=== PATIENT | male | born 1945 | race Caucasian/White ===

== ENCOUNTER → 2020-01-24 11:05 | Outpatient (BNVA) | payer MEDICARE, OTHER, SELFPAY | PROVIDERS: Visit Provider Urology | DX: Z76.89 Persons encountering health services in other specified circumstances (principal) | CPT/HCPCS: 99202 ==

== ENCOUNTER 2020-12-06 10:26 | Emergency (ER) | payer MEDICARE, OTHER, SELFPAY ==
--- NOTE | ~2020-12-06 | CT_ITS ---
EXAMINATION: CT CERVICAL SPINE WITHOUT CONTRAST CLINICAL INFORMATION: Left-sided neck pain COMPARISON: None TECHNIQUE: Axial images through the cervical spine without contrast. Sagittal and coronal reconstructions on the technologist workstation were performed. This CT examination was performed using dose optimization techniques as appropriate, variously including the following: *Automated exposure control *Adjustment of mA and/or kV according to patient size (this includes techniques or standardized protocols for targeted exams where dose is matched to indication/reason for exam; i.e. extremities or head) *Use of iterative reconstruction technique DLP: 513 mGy-cm FINDINGS: [employer] In[employer] film indicates increased lung markings in the right mid and lower lung. There may be a postsurgical changes to the right shoulder. Bone alignment is normal. No fracture or dislocation is seen. There is degenerative spondylosis and disc space narrowing at C5-C6. There is disc osteophyte complex at C5-C6. There are degenerative changes at the C1 dens articulation. No definite disc herniation is seen. No significant spinal stenosis is seen. There is mild left-sided neuroforaminal narrowing from bony osteophyte. There is mild disc osteophyte complex at C6-C7. No disc herniation or spinal stenosis or neural foraminal narrowing seen. Visualized intracranial structures are normal. Prevertebral soft tissues are normal. There is mild bilateral carotid calcification. There are increased markings seen at the right lung apex. The left lung apex is clear. CT/CT cervical spine wo con IMPRESSION: Degenerative spondylosis and degenerative disc disease at C5-C6 with mild left-sided neuroforaminal narrowing from bony osteophyte. Small disc osteophyte complex at C6-C7. No fracture or dislocation seen. Increased lung markings at the right lung apex.
[2020-12-06 10:41] VITALS: BP 155/67; PULSE 67; RESP 18; TEMP 36.1; O2SAT 94; BMI 29.7
[2020-12-06] MEDS: Lidocaine 4 % Patch ADH..PATCH 1 PATCH TRANSDERMA (11:29)
[2020-12-06] MEDS: diazePAM 5 MG TABLET PO (11:29)
[2020-12-06] MEDS: Acetaminophen 325 MG TABLET 650 MG PO (11:29)
--- NOTE | 2020-12-06 12:23 | ED.NECK ---
HPI - Neck Pain/Injury General Chief Complaint: Neck Pain/Injury Stated Complaint: NECK PAIN Time Seen by Provider: 12/06/20 11:08 Source: patient Mode of arrival: ambulatory History of Present Illness HPI Narrative: 75-year-old male with a past medical history of gout, heart attack, HTN, presenting to the ED complaining of left-sided neck pain radiating to head x1 week. Admits pain began after lifting heavy boxes. For pain worse with head/neck movement and arm movement. Denies radiation of pain down arm, numbness, tingling, weakness, visual changes, CP/SOB. Patient takes baby ASA daily. Denies direct injury/fall or trauma MD complaint: neck pain Related Data Home Medications Medication Instructions Recorded Confirmed aspirin 81 mg tablet,delayed 81 mg PO DAILY 01/24/20 release atorvastatin 80 mg tablet 80 mg PO DAILY 01/24/20 ezetimibe 10 mg tablet 10 mg PO DAILY 01/24/20 flu vacc (65yr ml IM 01/24/20 up)-MF59C(PF) 60 mcg(15 mcgx4)/0.5 mL IM syringe hydrocortisone 2.5 % topical cream applic TOPICAL 01/24/20 lisinopril 5 mg tablet 5 mg PO DAILY 01/24/20 metoprolol succinate 100 mg 100 mg PO DAILY 01/24/20 tablet,extended release 24 hr nitroglycerin 0.4 mg sublingual 0.4 mg SUBLINGUAL Q5M PRN 01/24/20 tablet (Nitrostat) Previous Rx's Medication Instructions Recorded acetaminophen 500 mg tablet 500 mg PO Q6H PRN #20 tab 12/06/20 (Tylenol Extra Strength) cyclobenzaprine 5 mg tablet 5 mg PO Q8H PRN 5 Days #14 tab 12/06/20 lidocaine 5 % topical patch 1 patch TOPICAL DAILY PRN #30 ea 12/06/20 (Lidoderm) MDD remove after 12 hours Allergies Allergy/AdvReac Type Severity Reaction Status Date / Time No Known Allergies Allergy Verified 12/06/20 10:43 Review of Systems Review of Systems: Constitutional: No Fever, No Night Sweats, No Fatigue, No Malaise ENT/Mouth: No Ear Pain, No Nasal Congestion, No sore throat, No Swallowing Difficulty Eyes: No Eye Pain, No Redness, No Vision Changes Cardiovascular: No Chest Pain, No SOB, No Edema, No Palpitations Respiratory: No Cough, No Dyspnea Gastrointestinal: No Nausea, No Vomiting, No Diarrhea, No Constipation, No Abdominal pain Genitourinary: No Dysuria, No Urinary Frequency, No Urinary Incontinence, No Flank Pain Musculoskeletal: + joint pain, No Myalgias, No Joint Swelling Skin: No Skin Lesions, No rash Neuro: No Weakness, No Numbness, No Paresthesias, + Headache Yes all other systems are reviewed and are negative Neurologic: Denies Abnormal speech present [facility] Past Medical History Attestation statement: The following information was validated with the patient. Medical History (Updated 12/06/20 @ 12:35 by ANA Gould) Gout Heart attack High blood pressure Social History Social History Advance Directives: No Physical Exam Vital Signs: Vital Signs: Last Vital Signs Temp 97.0 F 12/06/20 10:41 Pulse 67 12/06/20 10:41 Resp 18 12/06/20 10:41 BP 155/67 H 12/06/20 10:41 Pulse Ox 94 12/06/20 10:41 Body Mass Index 29.7 Const: General: cooperative, healthy appearing, no acute distress, well developed, alert and awake Orientation/consciousness: patient oriented x3 Limitations: no limitations HENMT: Head: Yes normal to inspection, Yes normocephalic, Yes atraumatic, No Ward's sign and No raccoon eyes Ears: hearing grossly normal bilaterally, external ears normal and TM's normal bilaterally General nose exam: Normal external nose present Face and sinus: Yes normal facial exam Mouth: Normal oral and palatal mucosa present Throat: Yes posterior oropharynx normal, Yes tonsils normal, Yes uvula midline, No peritonsillar mass and No uvula laterally displaced Eyes: General: appearance normal, both eyes and all related structures EOM: EOMs intact bilaterally Neck: Other: no midline cervical spinous tenderness/step-off. + left-sided paraspinal/MSK tenderness to palpation. + pain elicited on ROM of neck > rightward movement of neck Neck: Yes normal visual inspection, Yes no meningeal signs, Yes trachea midline, Yes supple and No anterior neck swelling Resp: Effort & Inspection: normal respiratory effort and no respiratory distress Cardio: Rate: regular rate GI: Inspection: Yes normal to inspection Palpation (GI): Soft to palpation, nontender, no guarding and not rigid Skin: Rashes: no rashes Wounds: no wounds Neuro: Other: No saddle anesthesia General: patient oriented x3, gait normal, tone normal, moves all extremities, no meningeal signs and no focal motor deficits Cognition (Neuro): normal cognition Speech: No Abnormal speech present Gait exam (Neuro): Normal gait present Motor exam (neuro): 5/5 motor strength present throughout Extrem: General: Yes normal to inspection Course Course Course Narrative: -patient reports symptomatic improvement in the ED after p.o. Valium, Tylenol, and Lidoderm patch CT cervical spine wo con IMPRESSION: Degenerative spondylosis and degenerative disc disease at C5-C6 with mild left-sided neuroforaminal narrowing from bony osteophyte. Small disc osteophyte complex at C6-C7. No fracture or dislocation seen. Increased lung markings at the right lung apex. >> results discussed with patient and at bedside. Recommended follow-up with PCP. Worrisome signs and symptoms and strict return precautions discussed, they verbalized understanding and feel safe for discharge home MDM - Neck Pain/Injury MDM Narrative Medical decision making narrative: 75-year-old male with a past medical history of gout, heart attack, HTN, presenting to the ED complaining of left-sided neck pain radiating to head x1 week. On exam VSS, NAD, physical exam as above. No midline spinous tenderness throughout, strength intact throughout. Likely MSK pain. Lower concern for cord compression, or cervical dissection. Plan: P.o. Valium, cervical spine CT Medical Records Attestation: I reviewed the patient's medical records. Lab Data Attestation: I reviewed the patient's lab results. Discharge Plan Discharge Clinical Impression: Degenerative disc disease Qualifiers: Spinal region: mid-cervical Mid-cervical spinal level: unspecified Qualified Code(s): M50.320 - Other cervical disc degeneration, mid-cervical region, unspecified level Patient Disposition: Home, Self-Care Instructions: Acute Neck Pain (ED) Additional Instructions: Your CAT scan shows degenerative disc disease at C5-C6 and some bony osteophytes/bony protrusions. No fracture or dislocation. Is important for you to follow-up with your primary care doctor. Your pain is likely musculoskeletal Flexeril is a muscle relaxer, take at night as it makes you drowsy, do not drive, drink alcohol, or operate machinery while taking it Lidoderm patches are numbing patches, apply to painful area In addition take Tylenol at home If symptoms persist or worsen, pain becomes unbearable, you developed urinary retention or incontinence, or weakness return to the ED Prescriptions: New acetaminophen [Tylenol Extra Strength] 500 mg tablet 500 mg PO Q6H PRN (Reason: pain or fever) Qty: 20 RF: 0 lidocaine [Lidoderm] 5 % adhesive patch,medicated 1 patch topical DAILY MDD remove after 12 hours PRN (Reason: pain) Qty: 30 RF: 0 cyclobenzaprine 5 mg tablet 5 mg PO Q8H PRN (Reason: pain (scale score 7-10)) 5 Days Qty: 14 RF: 0 No Action metoprolol succinate 100 mg tablet extended release 24 hr 100 mg PO DAILY RF: 0 aspirin 81 mg tablet,delayed release (DR/EC) 81 mg PO DAILY RF: 0 Fluad Quad 2020-21(65y up)(PF) 60 mcg (15 mcg x 4)/0.5 mL syringe IM RF: 0 atorvastatin 80 mg tablet 80 mg PO DAILY RF: 0 lisinopril 5 mg tablet 5 mg PO DAILY RF: 0 ezetimibe 10 mg tablet 10 mg PO DAILY RF: 0 hydrocortisone 2.5 % cream topical RF: 0 nitroglycerin [Nitrostat] 0.4 mg tablet, sublingual 0.4 mg sublingual Q5M PRNRF: 0 Referrals: Cleveland Palm MD [Primary Care Provider] - 2 days
[2020-12-06 12:47] VITALS: BP 115/80; PULSE 60; RESP 19; O2SAT 97
== END 2020-12-06 12:48 | disposition home or self-care (01) ==
PROVIDERS: Emergency Provider Emergency Medicine; PCP Internal Medicine
DX: M50.320 Other cervical disc degeneration, mid-cervical region, unspecified level (principal); Z79.899 Other long term (current) drug therapy
CPT/HCPCS: 72125; 99284

== ENCOUNTER 2021-09-13 20:41 | Emergency (ER) | payer MEDICARE, OTHER, SELFPAY ==
--- NOTE | 2021-09-13 | ECG_ITS ---
Test Reason : STROKE Blood Pressure : / mmHG Vent. Rate : 067 BPM Atrial Rate : 067 BPM P-R Int : 146 ms QRS Dur : 076 ms QT Int : 402 ms P-R-T Axes : 043 012 036 degrees QTc Int : 424 ms Normal sinus rhythm Normal ECG No previous ECGs available Referred By: Andie Alas Electronically Signed By:Pee Kulkarni
--- NOTE | ~2021-09-13 | CT_ITS ---
EXAMINATION: CT HEAD WITHOUT CONTRAST CLINICAL INFORMATION: Unable to move right arm COMPARISON: None TECHNIQUE: Imaging was performed from the skull base to vertex without intravenous administration of contrast. This CT examination was performed using dose optimization techniques as appropriate, variously including the following: *Automated exposure control *Adjustment of mA and/or kV according to patient size (this includes techniques or standardized protocols for targeted exams where dose is matched to indication/reason for exam; i.e. extremities or head) *Use of iterative reconstruction technique Total exam dose length product: 856 mGy-cm FINDINGS: Approximately 4.4 x 2.9 x 4.2 cm high density intraparenchymal hematoma centered in the posterior high left frontal and adjacent parietal lobe with surrounding vasogenic edema and local mass effect/sulcal effacement and slight mass effect on the underlying posterior left lateral ventricle. No midline shift or herniation. Suggestion of a small amount of contralateral right posterior parafalcine subarachnoid hemorrhage on series 5 image 22. No other intracranial hemorrhage or mass. No midline shift or herniation. Basal cisterns are patent. Rios-white matter differentiation is maintained. 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 Proportional prominence of the ventricles and sulcal spaces is consistent with mild volume loss. Patchy periventricular and deep white matter hypoattenuation is consistent with moderate small vessel ischemic changes. No calvarial fracture or soft tissue abnormality. Opacification of the left frontal sinus. Mastoid air cells and visualized paranasal sinuses otherwise normally aerated. CT/CT head for stroke IMPRESSION: 1. Approximately 4.4 x 2.9 x 4.2 cm intraparenchymal hemorrhage/hematoma in the high left posterior frontal and adjacent parietal lobes with surrounding vasogenic edema and local mass effect. No midline shift or herniation. 2. Suspected small amount of right posterior parafalcine/parietal subarachnoid hemorrhage. This critical result was discussed with Andie Alas at 8:59 PM on 09/13/2021 and it was ascertained that the content and urgency of the report was understood at the time of direct communication.
[2021-09-13 20:50] LABS: Prothrombin Time Whole Bld POC 12.6 sec (11.1-13.5); ~PT, ~INR - Anti Coag Clinic 1.1 (0.9-1.1)
--- NOTE | 2021-09-13 20:50 | ED.NEUROSD ---
HPI - Neuro Symptoms/Deficit General Chief Complaint: Stroke Stated Complaint: stroke alert Time Seen by Provider: 09/13/21 20:46 Source: patient and EMS Mode of arrival: EMS Limitations: no limitations History of Present Illness HPI Narrative: Patient comes to the emergency room via EMS. Approximately at 20:50, patient try getting out of his couch at home, patient noticed that he could not move his right arm or his right leg. His noted that he had slurred speech. By the time that the patient arrived to the emergency room, patient was able to move a bit more his right arm and right leg, still having significant trouble moving upper and lower extremity on the right side, the speech is close to normal. Patient denies headache. Initial blood pressure 180/84 per EMS, in the emergency room 205/89 Related Data Home Medications Medication Instructions Recorded Confirmed aspirin 81 mg tablet,delayed 81 mg PO DAILY 01/24/20 release atorvastatin 80 mg tablet 80 mg PO DAILY 01/24/20 ezetimibe 10 mg tablet 10 mg PO DAILY 01/24/20 flu vacc 2019-21(65yr ml IM 01/24/20 up)-MF59C(PF) 60 mcg(15 mcgx4)/0.5 mL IM syringe hydrocortisone 2.5 % topical cream applic topical 01/24/20 lisinopril 5 mg tablet 5 mg PO DAILY 01/24/20 metoprolol succinate 100 mg 100 mg PO DAILY 01/24/20 tablet,extended release 24 hr nitroglycerin 0.4 mg sublingual 0.4 mg sublingual Q5M PRN 01/24/20 tablet (Nitrostat) Previous Rx's Medication Instructions Recorded acetaminophen 500 mg tablet 500 mg PO Q6H PRN pain or fever 12/06/20 (Tylenol Extra Strength) #20 tabs cyclobenzaprine 5 mg tablet 5 mg PO Q8H PRN pain (scale score 12/06/20 7-10) 5 days #14 tabs diazepam 5 mg tablet (Valium) 5 mg PO BEDTIME PRN muscle spasm 12/06/20 #5 tabs lidocaine 5 % topical patch 1 patch topical DAILY PRN pain #30 12/06/20 (Lidoderm) ea Allergies Allergy/AdvReac Type Severity Reaction Status Date / Time No Known Allergies Allergy Verified 12/06/20 10:43 Review of Systems Review of Systems: Constitutional : No Weight loss, No Fever, No Chills, No Night Sweats, No Fatigue, No Malaise ENT/Mouth : No Hearing loss, No Ear Pain, No Nasal Congestion, No Sinus Pain, No Hoarseness, No sore throat, No Rhinorrhea, No Swallowing Difficulty Eyes: No Eye Pain, No Swelling, No Redness, No Foreign Body, No Discharge, No Vision Changes Cardiovascular : No Chest Pain, No SOB, No Dyspnea on Exertion, No Orthopnea, No Edema, No Palpitations Respiratory : No Cough, No Sputum, No Wheezing, No Smoke Exposure, No Dyspnea Gastrointestinal : No Nausea, No Vomiting, No Diarrhea, No Constipation, No abdominal Pain, No Hematochezia, No Melena Genitourinary : no irregular bleeding, No Dysuria, No Urinary Frequency, No Hematuria, No Urinary Incontinence, No Urgency, No Flank Pain, No Urinary Flow Changes, No Hesitancy Musculoskeletal : No joint pain, No Myalgias, No Joint Swelling Skin : No Skin Lesions, No rash Neuro : Complaining of weakness in right upper and lower extremity, intermittent slurred speech, decreased sensation in the right arm, No Numbness, No Paresthesias, No Loss of Consciousness, No Dizziness, No Headache Psych : No Anxiety/Panic, No Depression, No SI/HI/AH/VH, No Social Issues, Heme/Lymph: No Bruising, No Bleeding,No Lymphadenopathy Endocrine : No Polyuria, No Polydipsia, No Temperature Intolerance [facility] Past Medical History Medical History Gout Heart attack High blood pressure Social History Social History Advance Directives: No Advance Directives Information Provided: No Physical Exam Vital Signs: Vital Signs: Last Vital Signs Temp 98.2 F 09/13/21 22:05 Pulse 53 09/13/21 22:05 Resp 20 09/13/21 22:05 BP 166/70 H 09/13/21 22:05 Pulse Ox 96 09/13/21 22:05 O2 Del Method 09/13/21 22:05 BMI result Body Mass Index 30.2 Const: Other: Appearance: Alert. Oriented X3. No acute distress. Eyes: Pupils equal, round and reactive to light. ENT: Pharynx normal. Neck: Normal inspection. Neck supple. No lymph nodes noted. No crepitus CVS: Normal heart rate and rhythm. Pulses normal. Normal S1 and S2 Respiratory: No respiratory distress. Breath sounds normal. No Wheezing. No rales Abdomen: Soft and nontender. No rigidity. No distention. Skin: Skin warm and dry. Normal skin color. Normal skin turgor. Extremities: Patient has significant drift in right leg and right arm, decreased sensation in right arm Neuro: Oriented X 3. No motor deficit. No sensory deficit. Moving all extremities. No slurred speech. CN 2 through 12 grossly intact Psych: calm, cooperative, normal affect Course Course Course Narrative: Dry CT scan shows a 4.4 cm intraparenchymal hemorrhage. Patient is not on blood thinners, patient denies any trauma. Patient is not sure if he has been diagnosed with hypertension in the past. However, per patient's past medical history he has the diagnosis of hypertension, UT and gout 21:09. We called [facility], call Back pending. Patient is getting nicardipine at this time. Patient states that he feels well. No headache. Patient remains awake, alert and oriented x3, denies headache. 21:45, I discussed the patient with Dr. Griffin from [facility] neurology, the full radiology report is not available yet. Patient's blood pressure in the 160 systolic. Goal will be less than 140. Recommendations: Patient will be admitted at [facility] by medicine. Call Back pending. Patient has not had his home medications yet, patient will be given metoprolol 100 mg and lisinopril 5 mg 22:20, I discussed the patient with Dr. Dennis, patient being admitted to [facility] the inpatient floor MDM - Neuro Symptoms/Deficit Lab Data Result diagrams: 09/13/21 20:58 09/13/21 20:58 Labs: Lab Results 09/13/21 09/13/21 09/13/21 Range/Units 20:46 20:47 20:58 WBC 6.5 (4.8-10.8) X10*3/uL RBC 4.55 L (4.60-5.80) X10*6/uL Hgb 13.8 L (14.0-18.0) g/dl Hct 41.3 L (42.0-52.0) % MCV 90.8 (80.0-98.0) fL MCH 30.3 (27.0-33.0) pg MCHC 33.4 (31.0-36.0) g/dl RDW 13.1 (11.0-16.0) % Plt Count 236 (160-400) X10*3/uL MPV 8.7 L (9.4-12.4) fL Immature Gran % (Auto) 0.3 (0.0-0.4) % Neut % (Auto) 42.3 L (45-73) % Lymph % (Auto) 36.9 (20-40) % Stewart % (Auto) 14.0 H (2-11) % Eos % (Auto) 5.7 H (0-4) % Baso % (Auto) 0.8 (0-2) % Lymph # (Auto) 2.4 (1.2-4.9) X10*3/uL Stewart # (Auto) 0.9 (0.1-1.2) X10*3/uL Eos # (Auto) 0.4 (0.0-0.4) X10*3/uL Baso # (Auto) 0.1 (0.0-0.2) X10*3/uL Abs Immat Gran (auto) 0.02 (0.00-0.03) X10*3/uL Absolute Neuts (auto) 2.7 (2.0-8.3) x10*3/uL Absolute Nucleated RBC 0.000 (0.0-0.012) X10*3/uL Nucleated RBC % (auto) 0.0 (0.0-0.2) /100WBC PT (9.9-13.0) SEC Whole Blood PT 12.6 (11.1-13.5) sec INR (0.9-1.1) Whole Blood INR 1.1 (0.9-1.1) Sodium (135-145) mmol/L Potassium (3.3-5.1) mmol/L Chloride (96-108) mmol/L Carbon Dioxide (22-29) mmol/L Anion Gap (12-20) BUN (9-16) mg/dL Creatinine (0.5-1.4) mg/dL Estim Creat Clear Calc Estimated GFR POC Glucose 123 H (60-115) mg/dL Random Glucose (60-115) mg/dL Calcium (8.4-10.2) mg/dL Total Bilirubin (0.0-1.0) mg/dL AST (5-37) U/L ALT (0-40) U/L Alkaline Phosphatase (39-117) U/L Troponin I High Sens (<3.5-35.0) ng/L Total Protein (6.5-8.0) g/dL Albumin (3.5-5.0) g/dL COVID-19 (DINESH) (Negative) COVID-19 Clin Com 09/13/21 09/13/21 09/13/21 Range/Units 20:58 20:58 20:58 WBC (4.8-10.8) X10*3/uL RBC (4.60-5.80) X10*6/uL Hgb (14.0-18.0) g/dl Hct (42.0-52.0) % MCV (80.0-98.0) fL MCH (27.0-33.0) pg MCHC (31.0-36.0) g/dl RDW (11.0-16.0) % Plt Count (160-400) X10*3/uL MPV (9.4-12.4) fL Immature Gran % (Auto) (0.0-0.4) % Neut % (Auto) (45-73) % Lymph % (Auto) (20-40) % Stewart % (Auto) (2-11) % Eos % (Auto) (0-4) % Baso % (Auto) (0-2) % Lymph # (Auto) (1.2-4.9) X10*3/uL Stewart # (Auto) (0.1-1.2) X10*3/uL Eos # (Auto) (0.0-0.4) X10*3/uL Baso # (Auto) (0.0-0.2) X10*3/uL Abs Immat Gran (auto) (0.00-0.03) X10*3/uL Absolute Neuts (auto) (2.0-8.3) x10*3/uL Absolute Nucleated RBC (0.0-0.012) X10*3/uL Nucleated RBC % (auto) (0.0-0.2) /100WBC PT 11.1 (9.9-13.0) SEC Whole Blood PT (11.1-13.5) sec INR 1.0 (0.9-1.1) Whole Blood INR (0.9-1.1) Sodium 135 (135-145) mmol/L Potassium 4.1 (3.3-5.1) mmol/L Chloride 105 (96-108) mmol/L Carbon Dioxide 21 L (22-29) mmol/L Anion Gap 13 (12-20) BUN 12 (9-16) mg/dL Creatinine 1.03 (0.5-1.4) mg/dL Estim Creat Clear Calc TNP Estimated GFR > 60 POC Glucose (60-115) mg/dL Random Glucose 135 H (60-115) mg/dL Calcium 8.7 (8.4-10.2) mg/dL Total Bilirubin 0.5 (0.0-1.0) mg/dL AST 27 (5-37) U/L ALT 19 (0-40) U/L Alkaline Phosphatase 97 (39-117) U/L Troponin I High Sens 11.0 (<3.5-35.0) ng/L Total Protein 7.6 (6.5-8.0) g/dL Albumin 3.8 (3.5-5.0) g/dL COVID-19 (DINESH) (Negative) COVID-19 Clin Com 09/13/21 Range/Units 21:17 WBC (4.8-10.8) X10*3/uL RBC (4.60-5.80) X10*6/uL Hgb (14.0-18.0) g/dl Hct (42.0-52.0) % MCV (80.0-98.0) fL MCH (27.0-33.0) pg MCHC (31.0-36.0) g/dl RDW (11.0-16.0) % Plt Count (160-400) X10*3/uL MPV (9.4-12.4) fL Immature Gran % (Auto) (0.0-0.4) % Neut % (Auto) (45-73) % Lymph % (Auto) (20-40) % Stewart % (Auto) (2-11) % Eos % (Auto) (0-4) % Baso % (Auto) (0-2) % Lymph # (Auto) (1.2-4.9) X10*3/uL Stewart # (Auto) (0.1-1.2) X10*3/uL Eos # (Auto) (0.0-0.4) X10*3/uL Baso # (Auto) (0.0-0.2) X10*3/uL Abs Immat Gran (auto) (0.00-0.03) X10*3/uL Absolute Neuts (auto) (2.0-8.3) x10*3/uL Absolute Nucleated RBC (0.0-0.012) X10*3/uL Nucleated RBC % (auto) (0.0-0.2) /100WBC PT (9.9-13.0) SEC Whole Blood PT (11.1-13.5) sec INR (0.9-1.1) Whole Blood INR (0.9-1.1) Sodium (135-145) mmol/L Potassium (3.3-5.1) mmol/L Chloride (96-108) mmol/L Carbon Dioxide (22-29) mmol/L Anion Gap (12-20) BUN (9-16) mg/dL Creatinine (0.5-1.4) mg/dL Estim Creat Clear Calc Estimated GFR POC Glucose (60-115) mg/dL Random Glucose (60-115) mg/dL Calcium (8.4-10.2) mg/dL Total Bilirubin (0.0-1.0) mg/dL AST (5-37) U/L ALT (0-40) U/L Alkaline Phosphatase (39-117) U/L Troponin I High Sens (<3.5-35.0) ng/L Total Protein (6.5-8.0) g/dL Albumin (3.5-5.0) g/dL COVID-19 (DINESH) Negative (Negative) COVID-19 Clin Com See Note Imaging Data CT scan - head: Radiologist's impression: Approximately 4.4 x 2.9 x 4.2 cm high density intraparenchymal hematoma centered in the posterior high left frontal and adjacent parietal lobe with surrounding vasogenic edema and local mass effect/sulcal effacement and slight mass effect on the underlying posterior left lateral ventricle. No midline shift or herniation. Suggestion of a small amount of contralateral right posterior parafalcine subarachnoid hemorrhage on series 5 image 22. No other intracranial hemorrhage or mass. No midline shift or herniation. Basal cisterns are patent. Rios-white matter differentiation is maintained. 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 Proportional prominence of the ventricles and sulcal spaces is consistent with mild volume loss. Patchy periventricular and deep white matter hypoattenuation is consistent with moderate small vessel ischemic changes. No calvarial fracture or soft tissue abnormality.? Opacification of the left frontal sinus. Mastoid air cells and visualized paranasal sinuses otherwise normally aerated. CT/CT head for stroke IMPRESSION: 1.? Approximately 4.4 x 2.9 x 4.2 cm intraparenchymal hemorrhage/hematoma in the high left posterior frontal and adjacent parietal lobes with surrounding vasogenic edema and local mass effect. No midline shift or herniation. 2.? Suspected small amount of right posterior parafalcine/parietal subarachnoid hemorrhage. NIH Stroke Scale Level of Consciousness: Alert Level of Consciousness Questions: Answers both questions correctly Level of Consciousness Commands: Performs both tasks correctly Best Gaze: Normal Visual: No visual loss Facial Palsy: Normal Motor Arm (Right): Drift Motor Arm (Left): No drift Motor Leg (Right): Drift Motor Leg (Left): No drift Limb Ataxia: Absent Sensory: Normal Best Language: No aphasia Dysarthia: Mild to moderate dysarthria Extinction and Inattention: No abnormality Score: 3 Critical Care Time Critical Care Time Critical Care Time: Yes Total Critical Care Time: 60 Attestation: I have personally provided critical care time. Time includes review of lab data, radiology results, discussion with consultants, and monitoring for potential decompensation. Intervention performed as documented. Discharge Plan Discharge Clinical Impression: Intraparenchymal hemorrhage of brain Patient Disposition: er Acute Care Hospital Transfer Details: [facility] Prescriptions: No Action acetaminophen [Tylenol Extra Strength] 500 mg tablet 500 mg PO Q6H PRN (Reason: pain or fever) Qty: 20 0RF lidocaine [Lidoderm] 5 % adhesive patch,medicated 1 patch topical DAILY MDD remove after 12 hours PRN (Reason: pain) Qty: 30 0RF Rx Instructions: leave on most painful area for up to 12 hrs cyclobenzaprine 5 mg tablet 5 mg PO Q8H PRN (Reason: pain (scale score 7-10)) 5 Days Qty: 14 0RF diazepam [Valium] 5 mg tablet 5 mg PO BEDTIME PRN (Reason: muscle spasm) Qty: 5 0RF metoprolol succinate 100 mg tablet extended release 24 hr 100 mg PO DAILY aspirin 81 mg tablet,delayed release (DR/EC) 81 mg PO DAILY Fluad Quad (65y up)(PF) 60 mcg (15 mcg x 4)/0.5 mL syringe IM atorvastatin 80 mg tablet 80 mg PO DAILY lisinopril 5 mg tablet 5 mg PO DAILY ezetimibe 10 mg tablet 10 mg PO DAILY hydrocortisone 2.5 % cream topical nitroglycerin [Nitrostat] 0.4 mg tablet, sublingual 0.4 mg sublingual Q5M PRN Rx Instructions: do not exceed 3 doses per episode
--- NOTE | 2021-09-13 21:13 | PC.NURSE ---
call out to [facility] transfer line @[phone]
[2021-09-13 21:14] LABS: MANUAL DIFF FLAG NO
[2021-09-13 21:16] LABS: Basophils Absolute Auto 0.1 X10*3/uL (0.0-0.2); Basophils Percent Auto 0.8 % (0-2); Eosinophils Absolute Auto 0.4 X10*3/uL (0.0-0.4); Eosinophils Percent Auto 5.7 % (0-4); Hematocrit 41.3 % (42.0-52.0); Hemoglobin 13.8 g/dl (14.0-18.0); Imm Gran Abs Auto 0.02 X10*3/uL (0.00-0.03); Imm Gran Pct Auto 0.3 % (0.0-0.4); Lymphocytes Absolute Auto 2.4 X10*3/uL (1.2-4.9); Lymphocytes Percent Auto 36.9 % (20-40); Mean Corpuscular HGB Conc 33.4 g/dl (31.0-36.0); Mean Corpuscular Hemoglobin 30.3 pg (27.0-33.0); Mean Corpuscular Volume 90.8 fL (80.0-98.0); Mean Platelet Volume 8.7 fL (9.4-12.4); Monocytes Absolute Auto 0.9 X10*3/uL (0.1-1.2); Neutrophils Absolute Auto 2.7 x10*3/uL (2.0-8.3); Neutrophils Percent Auto 42.3 % (45-73); Platelet Count 236 X10*3/uL (160-400); Red Blood Count 4.55 X10*6/uL (4.60-5.80); Red Cell Distribution Width 13.1 % (11.0-16.0); White Blood Count 6.5 X10*3/uL (4.8-10.8)
[2021-09-13 21:18] VITALS: BP 164/68; BP 180/84; PULSE 61; RESP 16; TEMP 36.6; O2SAT 96; BMI 30.2
[2021-09-13 21:20] LABS: Glucose, Whole Blood 123 mg/dL (60-115)
[2021-09-13 21:21] LABS: Prothrombin Time 11.1 SEC (9.9-13.0)
[2021-09-13 21:26] LABS: Alanine Aminotransferase 19 U/L (0-40); Albumin Level 3.8 g/dL (3.5-5.0); Alkaline Phosphatase 97 U/L (39-117); Anion Gap 13 (12-20); Aspartate Amino Transferase 27 U/L (5-37); Bilirubin Total 0.5 mg/dL (0.0-1.0); Blood Urea Nitrogen 12 mg/dL (9-16); Calcium 8.7 mg/dL (8.4-10.2); Carbon Dioxide 21 mmol/L (22-29); Chloride 105 mmol/L (96-108); Estimated Glomerular Filt Rate > 60; Glucose Random 135 mg/dL (60-115); Potassium 4.1 mmol/L (3.3-5.1); Sodium 135 mmol/L (135-145); Total Protein 7.6 g/dL (6.5-8.0)
[2021-09-13 21:27] VITALS: BP 158/68; PULSE 58; RESP 15; TEMP 36.6; O2SAT 96
[2021-09-13 21:28] VITALS: BP 160/66
[2021-09-13 21:40] LABS: COVID-19 Test Negative (Negative)
[2021-09-13] MEDS: lisinopriL 5 MG TABLET PO (22:03)
[2021-09-13] MEDS: Metoprolol Tartrate 100 MG TABLET PO (22:04)
[2021-09-13 22:05] VITALS: BP 166/70; PULSE 53; RESP 20; TEMP 36.8; O2SAT 96
[2021-09-13 22:20] VITALS: BP 161/69; PULSE 53; RESP 14; TEMP 36.8; O2SAT 95
--- NOTE | 2021-09-13 22:33 | PC.NURSE ---
PATIENT ASSIGNED TO BED [address] NURSE TO NURSE [phone]
[2021-09-13 22:39] VITALS: BP 162/66; PULSE 54; RESP 18; TEMP 36.4; O2SAT 95
== END 2021-09-14 | disposition short-term general hospital (02) ==
PROVIDERS: Emergency Provider Emergency Medicine; PCP Internal Medicine
DX: I61.8 Other nontraumatic intracerebral hemorrhage (principal); R47.81 Slurred speech; R47.1 Dysarthria and anarthria; G81.91 Hemiplegia, unspecified affecting right dominant side; R29.703 NIHSS score 3; Z20.822 Contact with and (suspected) exposure to COVID-19; I10 Essential (primary) hypertension; I25.2 Old myocardial infarction; Z79.82 Long term (current) use of aspirin; Z79.02 Long term (current) use of antithrombotics/antiplatelets; Z79.899 Other long term (current) drug therapy
CPT/HCPCS: 70450; 80053; 82947; 84484; 85025; 85610; 87635; 93005; 99285